=== PATIENT | male | born 1965 | race Caucasian/White ===

== ENCOUNTER 2021-05-09 07:22 | Day surgery (SDC) | payer OTHER ==
[2021-05-07 13:16] VITALS: BMI 38.5
[~2021-05-09 07:22] MED LIST: ALPRAZolam 0.25 MG TAB PO PRN; ALPRAZolam 0.5 MG TAB PO PRN; ASPIRIN 325 MG TAB PO ONE; ATORVASTATIN 80 MG TAB PO ONE; HEPARIN SODIUM,PORCINE 10,000 UNIT in SODIUM CHLORIDE 0.9% 1,000 ML IRRIGATION PRN; HEPARIN SODIUM,PORCINE 2,500 UNIT in SODIUM CHLORIDE 0.9% 250 ML IRRIGATION PRN; NITROGLYCERIN SL TABS 0.4 MG TAB SUBLINGUAL PRN; SODIUM CHLORIDE 0.9% 1,000 ML in EMPTY BAG 1 BAG IV ONE
[2021-05-09] MEDS ORDERED: VERAPAMIL 2.5 MG/ML 2 ML AMP ONE (08:35)
[2021-05-09] MEDS ORDERED: LIDOCAINE 1% INJ 10MG/ML (20 ML MDV) ONE (08:35)
[2021-05-09] MEDS ORDERED: fentaNYL (PF) 50 MCG/ML 2 ML AMP ONE (08:54)
[2021-05-09] MEDS ORDERED: fentaNYL (PF) 50 MCG/ML 2 ML AMP IV ONE ×2 (09:12)
[2021-05-09] MEDS ORDERED: MIDAZOLAM 2 MG/2 ML VIAL IV ONE ×2 (09:12→09:30)
[2021-05-09] MEDS ORDERED: LIDOCAINE 1% INJ 10MG/ML (10 ML MDV) SQ ONE (09:15)
[2021-05-09] MEDS ORDERED: HEPARIN SODIUM 1,000 UN/ML (10ML VL) ONE (09:17)
[2021-05-09] MEDS ORDERED: VERAPAMIL SYRINGE (5 MG/10 ML) INTRAARTER ONE (09:17)
[2021-05-09] MEDS ORDERED: HEPARIN SODIUM 1,000 UN/ML (10ML VL) IV ONE (09:18)
[2021-05-09] MEDS ORDERED: CLOPIDOGREL 75 MG TAB ONE (09:39)
[2021-05-09] MEDS ORDERED: NITROGLYCERIN 1000MCG/10ML SYRINGE INTRACORON ONE (09:40)
[2021-05-09] MEDS ORDERED: CLOPIDOGREL 75 MG TAB PO ONE (09:45)
[2021-05-09] MEDS ORDERED: IOPAMIDOL-370 125ML BTL INJ ONE (09:45)
[2021-05-09] MEDS ORDERED: IV FLUID CONTINUATION 1,000 ML IV ONE (09:47)
[2021-05-09] MEDS ORDERED: NITROGLYCERIN SL TABS 0.4 MG TAB SUBLINGUAL PRN (09:49)
[2021-05-09] MEDS ORDERED: RX INFO: IV CONTRAST WAS GIVEN 1 EACH MISC MISCELLANE PRN (09:49)
[2021-05-09] MEDS ORDERED: ATROPINE SULFATE 0.1 MG/ML 10ML SYRINGE IV PRN (09:49)
[2021-05-09] MEDS ORDERED: ZOLPIDEM 5 MG TAB PO PRN (09:49)
[2021-05-09] MEDS ORDERED: MAG HYDROX/AL HYDROX/SIMETH 30 ML CUP PO PRN (09:49)
[2021-05-09] MEDS ORDERED: SODIUM CHLORIDE 0.9% 1,000 ML IV SCH (10:00)
--- NOTE | 2021-05-09 10:44 | CC ---
CARDIAC CATHETERIZATION REPORT DATE OF SERVICE: May 09, 2021. PERFORMING PHYSICIAN: Denilson Gonzalez MD. PROCEDURE PERFORMED: 1. Selective right and left coronary angiogram. 2. Left heart catheterization. 3. Successful stenting of the mid right coronary artery using 3.25 x 18 mm Xience drug- eluting stent with an excellent angiographic results and reduction of stenosis from 80% to 0%. INDICATION: This is a very pleasant 55-year-old gentleman with significant family history of coronary artery disease who was experiencing symptoms of chest discomfort concerning for angina. APPROACH: Right radial artery. COMPLICATION: None. LEVEL OF SEDATION: Moderate with sedation length of 28 minutes. DESCRIPTION OF PROCEDURE: After obtaining an informed consent, the patient was brought to the cardiac record label internship. The right radial artery was cannulated using micropuncture technique under ultrasound guidance, the micropuncture wire passed easily. Then I placed a 6-[place] sheath at the right radial artery. After that, I gave the patient 2 mg of verapamil IA. The patient also was given a total of 6000 units of heparin IV and additional 2000 given throughout the procedure. Continuous ACT monitoring was also performed. I did selective right and left coronary angiogram with JR4 and JL3.5 catheters. Left heart catheterization was performed using the JR4 catheter which crossed the aortic valve then I did pullback across the valve. The procedure was completed without any complication. After that, I did intervene on the right coronary artery please see a separate paragraph for that. SELECTIVE CORONARY ANGIOGRAM: 1. The right coronary artery is a large caliber vessel. It is a dominant vessel. The RCA has a tight lesion in the midportion appeared to be in the range of 70% to 80%. 2. The left main appeared to be angiographically normal. Bifurcates into an LCX and LAD. 3. The LCX, the ostial LCX appeared to have a lesion in the range of 70%. The proximal and mid left circumflex appeared to be angiographically normal and distally seems to be angiographically normal as well. The left circumflex is a nondominant vessel. It gives rise into multiple small obtuse marginal branches. 4. The LAD: The proximal LAD appeared to be angiographically normal. The mid LAD has a tubular lesion appeared to be in the range of 30% to 40%. This is by the bifurcation of a large diagonal branch which has a lesion also appeared to be in the range of 50%. The mid to distal and distal LAD appeared to be angiographically normal. HEMODYNAMICS: The LVEDP was about 10 mm to 12 mmHg without significant gradient. PCI OF THE RCA: Anticoagulation was achieved using heparin with continuous ACT monitoring throughout the procedure. Subsequently, I did engage the right coronary artery using JR4 guide. I did wire it using a run-through wire. PTCA ballooning was performed using 25 x 12 mm balloon which was inflated under 6 atmospheres for 20 seconds. After that, I did deploy 325 x 18 mm Xience drug-eluting stent where the stent was positioned under fluoroscopic guidance and deployed under 16 atmospheres for 20 seconds. The following angiogram showed excellent angiographic results and the procedure at that point was completed without any complication. CONCLUSION: 1. Intermittent episodes of chest discomfort concerning for angina in this 56-year-old gentleman with hypertension and dyslipidemia and significant family history of coronary artery disease. 2. Severe disease involving the mid right coronary artery. I did perform successful stenting of the mid RCA using 3.25 x 18 mm Xience with an excellent angiographic result and reduction of stenosis from 80% to 0%. 3. Intermediate to severe disease involving the ostial left circumflex coronary artery. 4. Jhcj-[id number]-slyfkbiz disease involving the LAD. 5. Normal LVEDP. POSTPROCEDURE MANAGEMENT: 1. Medical treatment. 2. Continued dual anti-platelet therapy. 3. High-intensity statin. 4. Follow up with the patient. [place] / [place]: [id number] /
[2021-05-09] MEDS: METOPROLOL TARTRATE 50 MG TAB PO SCH (19:37)
[2021-05-10 05:16] VITALS: RESP 18
[2021-05-10 06:44] LABS: Basophils # (A) 0.1 k/uL (0-0.2); Basophils % (A) 1 %; Eosinophils # (A) 0.3 k/uL (0-0.7); Eosinophils % (A) 5 %; HCT 48.7 % (39.0-53.0); HGB 16.2 gm/dL (13.0-17.5); Hypochromasia Slight; Lymphocytes # (A) 1.5 k/uL (1.0-4.8); Lymphocytes % (A) 24 %; MCH 31.9 pg (25.0-35.0); MCHC 33.3 g/dL (31.0-37.0); MCV 95.8 fL (80.0-100.0); Mean Platelet Volume 8.2; Monocytes # (A) 0.6 k/uL (0-1.0); Monocytes % (A) 9 %; Neutrophils # (A) 3.6 k/uL (1.3-7.7); Neutrophils % (A) 59 %; Platelet Count 221 k/uL (150-450); RBC 5.09 m/uL (4.30-5.90); RDW 14.1 % (11.5-15.5); WBC 6.2 k/uL (3.8-10.6)
[2021-05-10 07:20] LABS: African American GFR (CKD) >90 (>60 ml/min/1.73 sqM); Anion Gap 9 mmol/L; Blood Urea Nitrogen 17 mg/dL (9-20); Calcium 9.4 mg/dL (8.4-10.2); Carbon Dioxide 24 mmol/L (22-30); Chloride 102 mmol/L (98-107); Glucose 97 mg/dL (74-99); Non-African American GFR(CKD) >90 (>60 ml/min/1.73 sqM); Potassium 4.6 mmol/L (3.5-5.1); Sodium 135 mmol/L (137-145)
[2021-05-10] MEDS: METOPROLOL TARTRATE 50 MG TAB PO SCH (08:03)
[2021-05-10] MEDS ORDERED: CLOPIDOGREL 75 MG TAB PO SCH (09:00)
[2021-05-10] MEDS ORDERED: lisinopriL 20 MG TAB PO SCH (09:00)
[2021-05-10] MEDS ORDERED: hydroCHLOROthiazide 12.5 MG CAP PO SCH (09:00)
[2021-05-10] MEDS ORDERED: MULTIVITAMINS, THERA 1 EACH TAB PO SCH (09:00)
[2021-05-10] MEDS ORDERED: NON FORMULARY DRUG (Omega-3 Fatty Acids/Fish Oil [Fish Oil 1,000 Mg Softgel] 1 EACH Capsul PO SCH (09:00)
[2021-05-10] MEDS ORDERED: CHOLECALCIFEROL 25 MCG (1000 IU) TABLET PO SCH (09:00)
[2021-05-10] MEDS ORDERED: ASPIRIN 81 MG PO SCH (09:00)
[2021-05-10] MEDS ORDERED: ASCORBIC ACID 500 MG TAB PO SCH (09:00)
[2021-05-10 10:12] VITALS: PULSE 60
[2021-05-10 11:44] VITALS: BP 106/72; TEMP 97.4
--- NOTE | 2021-05-10 12:13 | P.DS ---
Providers Date of admission: May 09 Attending physician: Denilson Gonzalez Consults: 05/09/21 09:49 Consult Physician Routine Consulting Provider: [facility] Consult Reason/Comments: Post Interventional patient Do you want consulting provider notified?: Already Contacted Primary care physician: [facility] Course: This is a 56-year-old gentleman who was experiencing symptoms of chest discomfort with exertion concerning for angina. He underwent a heart catheterization and that it is severe disease involving the RCA. He underwent successful stenting of the RCA from right radial approach. He was seen this morning. He denies any symptoms of chest pain or chest discomfort. From the cardiovascular standpoint of view, the patient can be discharged home on dual antiplatelet therapy. I will follow-up with the patient in a week. Plan - Discharge Summary Discharge Rx Participant: Yes New Discharge Prescriptions: New Atorvastatin Calcium [Lipitor] 80 mg PO DAILY #90 tablet Clopidogrel Bisulfate [Plavix] 75 mg PO DAILY #90 tab Continue Metoprolol Tartrate [Lopressor] 50 mg PO BID hydroCHLOROthiazide 12.5 mg PO DAILY Aspirin [[place]ade Aspirin EC] 81 mg PO DAILY Ramipril [Altace] 5 mg PO DAILY Cholecalciferol [Vitamin D3 (25 Mcg = 1000 Iu)] 25 mcg PO DAILY Ascorbic Acid [Vitamin C] 500 mg PO DAILY Multivit-Min/Folic/Vit K/Lycop [Men's Multivitamin Tablet] 1 each PO DAILY Menno-3 Fatty Acids/Fish Oil [Fish Oil 1,000 mg Softgel] 1 each PO DAILY Discharge Medication List Metoprolol Tartrate [Lopressor] 50 mg PO BID 05/15/16 [History] hydroCHLOROthiazide 12.5 mg PO DAILY 05/15/16 [History] Ascorbic Acid [Vitamin C] 500 mg PO DAILY 05/07/21 [History] Aspirin [Meade Aspirin EC] 81 mg PO DAILY 05/07/21 [History] Cholecalciferol [Vitamin D3 (25 Mcg = 1000 Iu)] 25 mcg PO DAILY 05/07/21 [History] Multivit-Min/Folic/Vit K/Lycop [Men's Multivitamin Tablet] 1 each PO DAILY 05/07/21 [History] Menno-3 Fatty Acids/Fish Oil [Fish Oil 1,000 mg Softgel] 1 each PO DAILY 05/07/21 [History] Ramipril [Altace] 5 mg PO DAILY 05/07/21 [History] Atorvastatin Calcium [Lipitor] 80 mg PO DAILY #90 tablet 05/10/21 [Rx] Clopidogrel Bisulfate [Plavix] 75 mg PO DAILY #90 tab 05/10/21 [Rx] Follow up Appointment(s)/Referral(s): Denilson Gonzalez MD [STAFF PHYSICIAN] - 1 Week
== END 2021-05-10 13:34 | disposition home or self-care (01) ==
LOC: CATHCVL 07:22 → 3SCARD 09:41 → CATHCVL 05-10 13:34
PROVIDERS: ATTEND Internal Medicine Interventional Cardiology
DX: I25.10 Atherosclerotic heart disease of native coronary artery without angina pectoris (principal); I10 Essential (primary) hypertension; E78.5 Hyperlipidemia, unspecified; Z82.49 Family history of ischemic heart disease and other diseases of the circulatory system; F17.210 Nicotine dependence, cigarettes, uncomplicated; L40.9 Psoriasis, unspecified
CPT/HCPCS: 93458; 80048; 85025; C9600; C1887; C1894; C1725; C1769; C1874; J2250; J3010; J1644 ×2; J2001; Q9967

== ENCOUNTER → 2021-05-17 | Outpatient (CLI) | payer OTHER ==
--- NOTE | 2021-05-17 11:40 | US ---
EXAMINATION TYPE: US carotid duplex BILAT DATE OF EXAM: 05/17/2021 COMPARISON: NONE CLINICAL HISTORY: I65.29 Occlusion and stenosis of unspec carotid. HTN controlled with meds EXAM MEASUREMENTS: RIGHT: Peak Systolic Velocity (PSV) cm/sec ----- Right CCA: 96.3 ----- Right ICA: 87.9 ----- Right ECA: 96.5 ICA/CCA ratio: 0.9 RIGHT: End Diastole cm/sec ----- Right CCA: 19.3 ----- Right ICA: 32.2 ----- Right ECA: 11.1 LEFT: Peak Systolic Velocity (PSV) cm/sec ----- Left CCA: 77.6 ----- Left ICA: 84.5 ----- Left ECA: 94.1 ICA/CCA ratio: 1.1 LEFT: End Diastole cm/sec ----- Left CCA: 24.8 ----- Left ICA: 30.7 ----- Left ECA: 16.0 VERTEBRALS (direction of flow): Right Vertebral: Antegrade Left Vertebral: Antegrade Rhythm: Normal Plaque seen in bilateral bulbs. No elevated velocities. No significant stenosis. IMPRESSION: No evidence for hemodynamically significant stenosis NASCET criteria was used in interpretation of this exam? Criteria for Assigning % of Stenosis / Diameter reduction (Estimation based on the indirect measurements of the internal carotid artery velocities (ICA PSV). 1. Normal (no stenosis)=ICA PSV < 125 cm/s: ratio < 2.0: ICA EDV<40 cm/s. 2. Less than 50% stenosis=ICA PSV < 125 cm/s: ratio < 2.0: ICA EDV<40 cm/s. 3. 50 to 69% stenosis=ICA PSV of 125 to 230 cm/s: ration 2.0 ? 4.0: ICA EDV 40-100 cm/s. 4. Greater than 70% stenosis to near occlusion= ICA PSV > 230 cm/s: ratio > 4.0: ICA EDV > 100 cm/s. 5. Near occlusion= ICA PSV velocities may be low or undetectable: variable ratio and ICA EDV. 6. Total occlusion=unable to detect flow.
== END | disposition home or self-care (01) ==
LOC: RADUSWWP 10:51
PROVIDERS: ATTEND Family Medicine
DX: I65.23 Occlusion and stenosis of bilateral carotid arteries (principal)
CPT/HCPCS: 93880

== ENCOUNTER → 2022-07-02 | Outpatient (CLI) | payer OTHER ==
--- NOTE | 2022-07-02 09:36 | MR ---
EXAMINATION TYPE: MR shoulder RT wo con DATE OF EXAM: 07/02/2022 COMPARISON: None HISTORY: Rt shoulder pain TECHNIQUE: Multiplanar, multisequence imaging of the right shoulder is performed without contrast. FINDINGS: There is motion on the exam. Rotator Cuff: Abnormal thickening is present within the rotator cuff, abnormal increased intrinsic si gnal is also present. Abnormal increased signal at the undersurface, coronal image #18 suggest partia l undersurface tear of the supraspinatus tendon at its insertion, Acromioclavicular Joint: There is arthropathy change present. Distal acromial spur is present. There is fluid signal in the subacromial subdeltoid bursa. Glenohumeral Joint: Intact, some mild spurring consistent with osteoarthritic change is suspected Labrum: There is some increased signal at the level of the inferior labrum, coronal image #21 series 301, there may be perihilar labral cyst suggesting a small tear Biceps Tendon: The long head of biceps is in normal location within bicipital groove, there is abnorm al increased intrinsic signal, the tendon sheath is distended, there is fluid signal present. Bone marrow signal: Pseudocysts are present within the humeral head. Other: Fluid signal is present along the subscapularis musculotendinous junction, there is a small krishna int effusion. There is some edema along the deltoid musculature IMPRESSION: There is motion on exam. Correlate for impingement. There is tendinopathy with possible partial under surface tear of the supraspinatus. Findings suggest biceps tendinopathy.
== END | disposition home or self-care (01) ==
LOC: RADMRIMAIN 08:15
DX: M25.511 Pain in right shoulder (principal); M67.813 Other specified disorders of tendon, right shoulder

== ENCOUNTER 2023-09-23 08:59 | Emergency (ER) | payer OTHER ==
[2023-09-23 09:14] VITALS: RESP 18
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
[2023-09-23] MEDS ORDERED: ACET/COD 300 MG/30 MG STARTER PACK 6 TAB BTL PO STA (10:49)
[2023-09-23 11:47] VITALS: BP 121/80; PULSE 69; TEMP 97.8
== END 2023-09-23 11:24 | disposition home or self-care (01) ==
LOC: EC 08:59
DX: M25.512 Pain in left shoulder (principal); I10 Essential (primary) hypertension; F12.90 Cannabis use, unspecified, uncomplicated; Z87.891 Personal history of nicotine dependence; Z79.82 Long term (current) use of aspirin; Z79.899 Other long term (current) drug therapy; V89.2XXA Person injured in unspecified motor-vehicle accident, traffic, initial encounter; Y92.410 Unspecified street and highway as the place of occurrence of the external cause
CPT/HCPCS: 70450; 71046; 72125; 99284